=== PATIENT | female | born 1990 | race Two or more races ===

== ENCOUNTER 2018-04-12 10:35 | Emergency (ER) | payer SELFPAY | END 2018-04-12 14:57 | disposition left against medical advice (07) | LOC: ER 10:35 | DX: F41.9 Anxiety disorder, unspecified (principal); Z53.29 Procedure and treatment not carried out because of patient's decision for other reasons ==

== ENCOUNTER → 2022-12-20 | Emergency (ER) | payer MEDICAID, OTHER ==
[~2022-12-20] VITALS: Ht 170.2 cm; Wt 100.0 kg
[~2022-12-20] MED LIST: HALOPERIDOL LACTATE 5 MG/ML INJ VIAL IM ONE; HALOPERIDOL LACTATE 5 MG/ML INJ VIAL ONE; diphenhdrAMINE HCL 50 MG/1 ML VL IM ONE
[2022-12-20 17:20] VITALS: BP 119/76
== END | disposition home or self-care (01) ==
LOC: ER 15:03
DX: F41.9 Anxiety disorder, unspecified (principal)
CPT/HCPCS: 96372; 99284; J1200; J1630

== ENCOUNTER 2023-04-28 13:30 | Emergency (ER) | payer MEDICAID ==
[~2023-04-28] VITALS: Ht 165.1 cm; Wt 93.0 kg
[2023-04-28 14:12] LABS: Basophils # (auto) 0.1 10 ^3/uL (0-0.2); Basophils % (auto) 0.7 % (0.0-2.0); Eosinophils # (auto) 0.1 10 ^3/uL (0-0.8); Eosinophils % (auto) 1.2 % (0.0-7.0); Hematocrit 39.9 % (36.0-46.0); Hemoglobin 13.5 g/dL (12.2-16.2); Lymphocytes # (auto) 2.9 10 ^3/uL (0.4-5.4); Lymphocytes % (auto) 24.6 % (10.0-50.0); Mean Corpuscular Hemoglobin 31.2 pg (28.0-32.0); Mean Corpuscular Hgb Conc. 33.8 g/dL (32.0-36.0); Mean Corpuscular Volume 92.4 fL (80.0-100.0); Monocytes # (auto) 0.6 10 ^3/uL (0-1.3); Monocytes % (auto) 5.3 % (0.0-12.0); Neutrophils # (auto) 7.9 10 ^3/uL (1.6-8.6); Neutrophils % (auto) 68.2 % (37.0-80.0); Nucleated Red Blood Cells % 0.1 %; Red Blood Cells 4.32 10^6/uL (4.0-5.20); Red Cell Distribution Width 12.8 % (11.8-14.3); White Blood Cell 11.6 10^3/uL (4.4-10.8)
[2023-04-28 14:25] LABS: Urine Bacteria MOD /hpf (None Seen); Urine Blood Negative /uL (Negative); Urine Mucus FEW (None Seen); Urine Specific Gravity 1.018 (1.001-1.035); Urine WBC 359 /hpf (0 - 5)
[2023-04-28 14:27] LABS: Albumin 3.1 g/dL (3.4-5.0); BUN/Creatinine Ratio 8.8 (10.0-20.0); Potassium 3.6 mmol/L (3.5-5.1)
[2023-04-28 14:29] LABS: Bilirubin, Total 0.3 mg/dL (0.2-1.0); Total Protein 7.3 g/dL (6.4-8.2)
[2023-04-28] MEDS ORDERED: CEPH-510 PO (16:12)
[2023-04-28 18:15] VITALS: BP 121/80
== END 2023-04-28 18:16 | disposition home or self-care (01) ==
LOC: ER 13:30
DX: O23.41 Unspecified infection of urinary tract in pregnancy, first trimester (principal); N39.0 Urinary tract infection, site not specified; R10.2 Pelvic and perineal pain; Z3A.11 11 weeks gestation of pregnancy
CPT/HCPCS: 36415; 76801; 80053; 81001; 83690; 84702; 85025

== ENCOUNTER 2024-10-24 21:20 | Emergency (ER) | payer MEDICAID ==
[~2024-10-24] VITALS: Ht 170.2 cm; Wt 99.7 kg
[~2024-10-24 21:20] MED LIST changes: +ACE3T PO; +CEPH-510 PO; -HALOPERIDOL LACTATE 5 MG/ML INJ VIAL IM ONE; -HALOPERIDOL LACTATE 5 MG/ML INJ VIAL ONE; +MECL1TAB42 PO; +ZOFR4T PO; -diphenhdrAMINE HCL 50 MG/1 ML VL IM ONE
[2024-10-24 21:46] VITALS: BP 143/92; PULSE 105; RESP 16; O2SAT 98
[2024-10-24 22:41] LABS: Rapid Influenza A Negative (Negative); Rapid Influenza B Negative (Negative)
[2024-10-24 22:42] LABS: COVID19 ANTIGEN SOFIA FIA NEGATIVE (NEGATIVE)
== END 2024-10-25 00:01 | disposition left against medical advice (07) ==
LOC: ER 21:20
DX: J11.1 Influenza due to unidentified influenza virus with other respiratory manifestations (principal); Z53.21 Procedure and treatment not carried out due to patient leaving prior to being seen by health care provider; Z20.822 Contact with and (suspected) exposure to COVID-19
CPT/HCPCS: 36415; 87426; 87804

== ENCOUNTER 2024-12-25 01:35 | Emergency (ER) | payer MEDICAID ==
[2024-12-25] MEDS ORDERED: ASPirin 81 mg TAB PO ONE (01:45)
[2024-12-25] MEDS ORDERED: FAMOTIDINE 20 MG TAB PO ONE (01:45)
[2024-12-25] MEDS ORDERED: LORazepam 0.5 MG TAB PO ONE (01:45)
--- NOTE | 2024-12-25 01:51 | ED.PDOC ---
HPI Comments 34-year-old female who came to ER due to chest pains. About an hour ago, patient started developing substernal chest pains, tight, pressure, constant, nonradiating non radiating, associated with nausea and shortness of breath. Patient appears very anxious at this time of care. She denies any recent use of alcohol or prohibited drugs Chief Complaint: Chest Pain Time Seen by MD: 01:50 Primary Care Provider: UNKNOWN Reviewed Notes: Nurses Notes Allergies: Coded Allergies: NO KNOWN ALLERGIES (Unverified , 04/28/23) Home Meds Active Scripts Meclizine HCl (Meclizine 25) 25 Mg Tab, 25 MG PO Q8HP PRN, #10 TAB Prov:GRACIELA NULL PAC 02/17/24 Ondansetron Odt 4MG Tab (ZOFRAN PO) 4 Mg Tb, 4 MG PO Q6HP PRN, #15 TAB ODT TAB-DISSOLVE IN MOUTH, THEN SWALLOW Prov:GRACIELA NULL PAC 02/17/24 Acetaminophen W/ Codeine (Tylenol W/Cod #3) 1 Tab Tb, 1 TAB PO Q6HP PRN, #15 TAB Prov:GRACIELA NULL PAC 02/17/24 Cephalexin ( Keflex 500) 500 Mg Cap, 1 CAP PO TID for 7 Days, #21 CAP Prov:RAVI MCINTYRE MD 04/28/23 Information Source: Patient Mode of Arrival: Ambulatory Severity: Moderate Timing: Minutes Duration: Since onset Prehospital treatment: None Location: Substernal Radiation: No Radiation Quality: Pressure, Aching Onset: With Light Exertion Cardiac Risk Factors: None PE Risk Factors: None History of: Similar pain in past Associated Signs and Symptoms: SOB, N/V Past Medical History PAST MEDICAL HISTORY: Denies Surgical History: Denies all surgeries RADIO INTERFERENCE INVESTIGATOR History: No Pertinent RADIO INTERFERENCE INVESTIGATOR History Family History Family History: Reviewed,noncontributory to illness Social History Smoker: Non-Smoker Alcohol: Denies ETOH Use Drugs: Denies Drug Use Lives In: Home Constitutional: denies: chills, diaphoresis, fatigue, fever, malaise, sweats, weakness, others EENTM: denies: blurred vision, double vision, ear bleeding, ear discharge, ear drainage, ear pain, ear ringing, eye pain, eye redness, hearing loss, mouth pain, mouth swelling, nasal discharge, nose bleeding, nose congestion, nose pain, photophobia, tearing, throat pain, throat swelling, voice changes, others Respiratory: reports: SOB at rest, shortness of breath; denies: cough, hemoptysis, orthopnea, SOB with excertion, stridor, wheezing, others Cardiovascular: reports: chest pain; denies: dizzy spells, diaphoresis, Dyspnea on exertion, edema, irregular heart beat, left arm pain, lightheadedness, palpitations, PND, syncope, others Gastrointestinal: reports: nausea; denies: abdomen distended, abdominal pain, blood streaked bowels, constipated, diarrhea, dysphagia, difficulty swallowing, hematemesis, melena, poor appetite, poor fluid intake, rectal bleeding, rectal pain, vomiting, others Genitourinary: denies: abnormal vagina bleeding, burning, dyspareunia, dysuria, flank pain, frequency, hematuria, incontinence, pain, , vagina discharge, urgency, others Neurological: denies: dizziness, fainting, headache, left sided numbness, left sided weakness, numbness, paresthesia, pre-existing deficit, right sided numbness, right sided weakness, seizure, speech problems, tingling, tremors, weakness, others Musculoskeletal: denies: back pain, gout, joint pain, joint swelling, muscle pain, muscle stiffness, neck pain, others Integumetry: denies: bruises, change in color, change in hair/nails, dryness, laceration, lesions, lumps, rash, wounds, others Allergic/Immunocompromised: denies: Difficulty Healing, Frequent Infections, Hives, Itching, others Hematologic/Lymphatic: denies: anemia, blood clots, easy bleeding, easy bruising, swollen glands, others Endocrine: denies: excessive hunger, excessive sweating, excessive thirst, excessive urination, flushing, intolerance to cold, intolerance to heat, unexplained weight gain, unexplained weight loss, others Psychiatric: reports: anxiety; denies: bipolar disorder, depression, hopeless, panic disorder, schizophrenia, sleepless, suicidal, others Physical Exam General Appearance: No Apparent Distress, Normal HEENT: Normal ENT Inspection, Pharynx Normal, TMs Normal Neck: Full Range of Motion, Non-Tender, Normal, Normal Inspection Respiratory: Chest Non-Tender, Lungs Clear, No Accessory Muscle Use, No Respiratory Distress, Normal Breath Sounds Cardiovascular: No Edema, No JVD, No Murmur, No Gallop, Normal Peripheral Pulses, Regular Rate/Rhythm Breast Exam: Deferred Gastrointestinal: No Organomegaly, Non Tender, No Pulsatile Mass, Normal Bowel Sounds, Soft Genitalia: Deferred Pelvic: Deferred Rectal: Deferred Extremities: No calf tenderness, Normal capillary refill, Normal inspection, Normal range of motion, Non-tender, No pedal edema Musculoskeletal : Apperance: Normal Neurologic: Alert, corporate trust officer II-XII nml as Tested, No Motor Deficits, Normal Affect, Normal Mood, No Sensory Deficits Cerebellar Function: Normal Reflexes: Normal Skin: Dry, Normal Color, Warm Lymphatic: No Adenopathy Was a procedure done? Was a procedure done?: No CP Differential Dx Differential Diagnosis: Angina, Anxiety / Panic Attack Differential Diagnosis: Angina, Chest Wall Pain, Costochondritis, Esophageal reflux/spasm, Gastritis, Myocardial Infarction Time of 1ST Reevaluation: 01:46 Reevaluation 1ST: Unchanged Patient Education/Counseling: Diagnosis, Treatment Family Education/Counseling: Diagnosis, Treatment Departure 1 Departure Time of Disposition: 02:55 (Patient presented with acute chest pain. I ordered the patient for labs EKG x-ray however patient eloped.) Impression: Primary Impression: Acute chest pain Disposition: 07 LEFT AWOL/ELOPED Condition: Serious Critical Care Note Critical Care Time?: No Stability Stability form required: No Heart Score Heart Score: Heart Score Response (Comments) Value History Slightly Suspicious 0 EKG Normal 0 Age <45 0 Risk Factors No known risk factors 0 Troponin Normal limit 0 Total 0 I personally scribed for DAYANNA MENON MD ([email or web address]) on 12/25/24 at 01:51. Electronically submitted by Cameron Chamorro ([email or web address]). DAYANNA MENON MD Dec 25, 2024 01:51
--- NOTE | 2024-12-25 04:10 | DVH ---
CHEST RADIOGRAPH Indication: CP Technique: Single frontal view of the chest was obtained Comparison: None IMPRESSION: Heart appears normal in size. The lungs appear clear without focal airspace opacity, effusion, or pn eumothorax
--- NOTE | 2024-12-25 09:48 | ECG ---
[facility] Test Date: 2024-12-25 Test Time: 09:45:54 Pat Name: BRIGETTE WIGGINS Department: ER Room: Gender: F Bonding Agent: CRYSTAL : 1990 Requested By: DAYANNA MENON Order Number: [id number] Reading MD: Measurements Intervals [place] Rate: 113 P: 53 [place]: 157 QRS: -24 QRSD: 79 T: 6 QT: 354 QTc: 486 Interpretive Statements Sinus tachycardia Borderline left axis deviation Borderline prolonged QT interval Please click the below link to view image of tracing.
[2024-12-25] MEDS ORDERED: CYCL-838 PO (11:34)
[2024-12-25] MEDS ORDERED: POTA-228 PO (11:34)
== END 2024-12-25 02:46 | disposition left against medical advice (07) ==
LOC: ER 01:35
DX: R07.89 Other chest pain (principal); Z79.899 Other long term (current) drug therapy
CPT/HCPCS: 71045; 93005

== ENCOUNTER 2024-12-25 09:42 | Emergency (ER) | payer MEDICAID ==
[~2024-12-25] VITALS: Ht 170.2 cm; Wt 95.0 kg
--- NOTE | 2024-12-25 10:16 | ED.PDOC ---
HPI Comments 34-year-old female with no reported PMHx brought in by EMS presents with a chief complaint of chest pain x 3 hours with associated anxiety. Patient reports that she got a sudden onset of chest pressure in the center of her chest, nonradiating, and is rated a 9/10. Patient is currently anxious during assessment. Chief Complaint: Chest Pain Time Seen by MD: 10:09 Primary Care Provider: EMMETT Mosquera Notes: Medications, Allergies Allergies: Coded Allergies: NO KNOWN ALLERGIES (Unverified , 04/28/23) Home Meds Active Scripts Cyclobenzaprine Hcl (CYCLOBENZAPRINE HCL) 7.5 Mg Tab, 7.5 MG PO Q6HP PRN for 7 Days, #28 TAB Prov:MILIND ARGUETA MD 12/25/24 Potassium Chloride (Potassium Chloride ER) 10 Meq Tab, 10 MEQ PO BID for 10 Days, #20 TAB Prov:MILIND ARGUETA MD 12/25/24 Meclizine HCl (Meclizine 25) 25 Mg Tab, 25 MG PO Q8HP PRN, #10 TAB Prov:GRACIELA NULL PAC 02/17/24 Ondansetron Odt 4MG Tab (ZOFRAN PO) 4 Mg Tb, 4 MG PO Q6HP PRN, #15 TAB ODT TAB-DISSOLVE IN MOUTH, THEN SWALLOW Prov:GRACIELA NULL PAC 02/17/24 Acetaminophen W/ Codeine (Tylenol W/Cod #3) 1 Tab Tb, 1 TAB PO Q6HP PRN, #15 TAB Prov:GRACIELA NULL PAC 02/17/24 Cephalexin ( Keflex 500) 500 Mg Cap, 1 CAP PO TID for 7 Days, #21 CAP Prov:RAVI MCINTYRE MD 04/28/23 Information Source: Patient Mode of Arrival: EMS Severity: Moderate Timing: Hours Duration: Since onset Prehospital treatment: None Location: Substernal Radiation: No Radiation Quality: Sharp Onset: At Rest Cardiac Risk Factors: None PE Risk Factors: None History of: None Past Medical History PAST MEDICAL HISTORY: Denies Surgical History: Denies all surgeries SHIPPING CLERK CRATING History: No Pertinent SHIPPING CLERK CRATING History Family History Family History: Reviewed,noncontributory to illness Social History Smoker: Non-Smoker Alcohol: Denies ETOH Use Drugs: Denies Drug Use Lives In: Home Constitutional: denies: chills, diaphoresis, fatigue, fever, malaise, sweats, weakness, others EENTM: denies: blurred vision, double vision, ear bleeding, ear discharge, ear drainage, ear pain, ear ringing, eye pain, eye redness, hearing loss, mouth pain, mouth swelling, nasal discharge, nose bleeding, nose congestion, nose pain, photophobia, tearing, throat pain, throat swelling, voice changes, others Respiratory: denies: cough, hemoptysis, orthopnea, SOB at rest, shortness of breath, SOB with excertion, stridor, wheezing, others Cardiovascular: reports: chest pain; denies: dizzy spells, diaphoresis, Dyspnea on exertion, edema, irregular heart beat, left arm pain, lightheadedness, palpitations, PND, syncope, others Gastrointestinal: denies: abdomen distended, abdominal pain, blood streaked bowels, constipated, diarrhea, dysphagia, difficulty swallowing, hematemesis, melena, nausea, poor appetite, poor fluid intake, rectal bleeding, rectal pain, vomiting, others Genitourinary: denies: abnormal vagina bleeding, burning, dyspareunia, dysuria, flank pain, frequency, hematuria, incontinence, pain, , vagina discharge, urgency, others Neurological: denies: dizziness, fainting, headache, left sided numbness, left sided weakness, numbness, paresthesia, pre-existing deficit, right sided numbness, right sided weakness, seizure, speech problems, tingling, tremors, weakness, others Musculoskeletal: denies: back pain, gout, joint pain, joint swelling, muscle pain, muscle stiffness, neck pain, others Integumetry: denies: bruises, change in color, change in hair/nails, dryness, laceration, lesions, lumps, rash, wounds, others Allergic/Immunocompromised: denies: Difficulty Healing, Frequent Infections, Hives, Itching, others Hematologic/Lymphatic: denies: anemia, blood clots, easy bleeding, easy bruising, swollen glands, others Endocrine: denies: excessive hunger, excessive sweating, excessive thirst, excessive urination, flushing, intolerance to cold, intolerance to heat, unexplained weight gain, unexplained weight loss, others Psychiatric: reports: anxiety; denies: bipolar disorder, depression, hopeless, panic disorder, schizophrenia, sleepless, suicidal, others All Other Systems: Reviewed and Negative Physical Exam General Appearance: Mild Distress, Normal HEENT: Normal ENT Inspection, Pharynx Normal, TMs Normal Neck: Full Range of Motion, Non-Tender, Normal, Normal Inspection Respiratory: Chest Non-Tender, Lungs Clear, No Accessory Muscle Use, No Respiratory Distress, Normal Breath Sounds Cardiovascular: No Edema, No JVD, No Murmur, No Gallop, Normal Peripheral Pulses, Regular Rate/Rhythm Breast Exam: Deferred Gastrointestinal: No Organomegaly, Non Tender, No Pulsatile Mass, Normal Bowel Sounds, Soft Genitalia: Deferred Pelvic: Deferred Rectal: Deferred Extremities: No calf tenderness, Normal capillary refill, Normal inspection, Normal range of motion, Non-tender, No pedal edema Musculoskeletal : Apperance: Normal Neurologic: Alert, video intern II-XII nml as Tested, No Motor Deficits, Normal Affect, Normal Mood, No Sensory Deficits Cerebellar Function: Normal Reflexes: Normal Skin: Dry, Normal Color, Warm Lymphatic: No Adenopathy Was a procedure done? Was a procedure done?: No CP Differential Dx Differential Diagnosis: A-fib, Angina, Heart Failure, Hypoxia, Pulmonary Embolus, Sinus Tachycardia, V-Fib, V-Tach, Other Differential Diagnosis: CHF X-Ray, Labs, Meds, VS Vital Signs Date Time Temp Pulse Resp B/P (MAP) Pulse Ox O2 Delivery O2 Flow Rate FiO2 12/25/24 11:46 98.0 98 20 121/75 (90) 97 98.0 12/25/24 11:45 98 20 97 Room Air* 0 21 12/25/24 10:34 97.5 112 26 142/92 (109) 100 97.5 12/25/24 10:34 112 26 100 Room Air 0 12/25/24 09:47 97.5 112 26 142/92 (109) 100 12/25/24 09:45 113 Lab Test 12/25/24 10:58 12/25/24 09:50 Range/Units Troponin I High Sensitivity 3 L 4 </=34 ng/L White Blood Count 12.0 H 4.4-10.8 10^3/uL Red Blood Count 4.93 4.0-5.20 10^6/uL Hemoglobin 14.8 12.2-16.2 g/dL Hematocrit 44.2 36.0-46.0 % Mean Corpuscular Volume 89.7 80.0-100.0 fL Mean Corpuscular Hemoglobin 30.1 28.0-32.0 pg Mean Corpuscular Hemoglobin Concent 33.6 32.0-36.0 g/dL Red Cell Distribution Width 14.0 11.8-14.3 % Platelet Count 345 140-450 10^3/uL Mean Platelet Volume 8.7 6.9-10.8 fL Neutrophils (%) (Auto) 63.8 37.0-80.0 % Lymphocytes (%) (Auto) 27.1 10.0-50.0 % Monocytes (%) (Auto) 7.8 0.0-12.0 % Eosinophils (%) (Auto) 0.6 0.0-7.0 % Basophils (%) (Auto) 0.7 0.0-2.0 % Neutrophils # (Auto) 7.6 1.6-8.6 10 ^3/uL Lymphocytes # (Auto) 3.2 0.4-5.4 10 ^3/uL Monocytes # (Auto) 0.9 0-1.3 10 ^3/uL Eosinophils # (Auto) 0.1 0-0.8 10 ^3/uL Basophils # (Auto) 0.1 0-0.2 10 ^3/uL Nucleated Red Blood Cells 0.0 % Sodium Level 139 136-145 mmol/L Potassium Level 2.9 L 3.5-5.1 mmol/L Chloride Level 106 98-107 mmol/L Carbon Dioxide Level 17 L 20-31 mmol/L Anion Gap 16 H 5-15 Blood Urea Nitrogen 8 L 9-23 mg/dL Creatinine 0.91 0.550-1.02 mg/dL Glomerular Filtration Rate Calc 85 >90 mL/min BUN/Creatinine Ratio 8.8 L 10.0-20.0 Serum Glucose 113 H 74-106 mg/dL Calcium Level 10.2 8.7-10.4 mg/dL Total Bilirubin 0.4 0.2-1.0 mg/dL Aspartate Amino Transferase (AST) 27 13-40 U/L Alanine Aminotransferase (ALT) 34 7-40 U/L Alkaline Phosphatase 91 46-116 U/L Total Protein 7.2 5.7-8.2 g/dL Albumin 4.8 3.2-4.8 g/dL Current Medications Medications (Trade) Dose Ordered Sig/Zuleyka Route Start Time Stop Time Status Last Admin Lorazepam (Ativan Inj) 2 mg ONCE ONCE IM 12/25/24 10:15 12/25/24 10:16 DC 12/25/24 10:29 Time of 1ST Reevaluation: 10:39 Reevaluation 1ST: Unchanged Time of 2ND Reevaluation: 12:00 Reevaluation 2ND: Improved Patient Education/Counseling: Diagnosis, Treatment, Prognosis Family Education/Counseling: Diagnosis, Treatment, Prognosis Departure 1 Departure Time of Disposition: 12:00 Impression: Primary Impression: Atypical chest pain Disposition: 01 HOME / SELF CARE / HOMELESS Condition: Stable e-Prescriptions Cyclobenzaprine Hcl (CYCLOBENZAPRINE HCL) 7.5 Mg Tab 7.5 MG PO Q6HP PRN for 7 Days, #28 TAB Prov: MILIND ARGUETA MD 12/25/24 Potassium Chloride (Potassium Chloride ER) 10 Meq Tab 10 MEQ PO BID for 10 Days, #20 TAB Prov: MILIND ARGUETA MD 12/25/24 Discharged With: Self Critical Care Note Critical Care Time?: No Stability Stability form required: No Heart Score Heart Score: Heart Score Response (Comments) Value History Slightly Suspicious 0 EKG Normal 0 Age <45 0 Risk Factors No known risk factors 0 Troponin Normal limit 0 Total 0 I personally scribed for MILIND ARGUETA MD ([email or web address]) on 12/25/24 at 10:16. Electronically submitted by Santo Sharp ([email or web address]). MILIND ARGUETA MD Dec 25, 2024 10:16
[2024-12-25 10:17] LABS: Basophils # (auto) 0.1 10 ^3/uL (0-0.2); Basophils % (auto) 0.7 % (0.0-2.0); Eosinophils # (auto) 0.1 10 ^3/uL (0-0.8); Eosinophils % (auto) 0.6 % (0.0-7.0); Hematocrit 44.2 % (36.0-46.0); Hemoglobin 14.8 g/dL (12.2-16.2); Lymphocytes # (auto) 3.2 10 ^3/uL (0.4-5.4); Lymphocytes % (auto) 27.1 % (10.0-50.0); Mean Corpuscular Hemoglobin 30.1 pg (28.0-32.0); Mean Corpuscular Hgb Conc. 33.6 g/dL (32.0-36.0); Mean Corpuscular Volume 89.7 fL (80.0-100.0); Monocytes # (auto) 0.9 10 ^3/uL (0-1.3); Monocytes % (auto) 7.8 % (0.0-12.0); Neutrophils # (auto) 7.6 10 ^3/uL (1.6-8.6); Neutrophils % (auto) 63.8 % (37.0-80.0); Platelet Count (auto) 345 10^3/uL (140-450); Red Blood Cells 4.93 10^6/uL (4.0-5.20)
[2024-12-25] MEDS: LORazepam 2MG/ML-1ML VIAL IM ONE (10:29)
[2024-12-25 10:32] LABS: Alanine Aminotransferase 34 U/L (7-40); Alkaline Phosphatase 91 U/L (46-116); Anion Gap 16 (5-15); BUN/Creatinine Ratio 8.8 (10.0-20.0); Calcium 10.2 mg/dL (8.7-10.4); Chloride 106 mmol/L (98-107); Sodium 139 mmol/L (136-145)
[2024-12-25 10:33] LABS: Albumin 4.8 g/dL (3.2-4.8); Aspartate Aminotransferase 27 U/L (13-40)
[2024-12-25 10:34] LABS: Bilirubin, Total 0.4 mg/dL (0.2-1.0); Blood Urea Nitrogen 8 mg/dL (9-23); Carbon Dioxide 17 mmol/L (20-31); Glucose 113 mg/dL (74-106); Potassium 2.9 mmol/L (3.5-5.1); Total Protein 7.2 g/dL (5.7-8.2)
--- NOTE | 2024-12-25 10:58 | DVH ---
CHEST RADIOGRAPH Indication: chest pain Technique: Single frontal view of the chest was obtained COMPARISON: XY CHEST PORTABLE on DOS: 12/25/24 FINDINGS: Lines and Tubes: None Lungs: Increased interstitial prominence Pleura: No effusion. No pneumothorax. Cardiomediastinal contours: Unremarkable Bones: Unremarkable IMPRESSION: Possible viral pneumonia
[2024-12-25] MEDS ORDERED: CYCL-838 PO (11:34)
[2024-12-25] MEDS ORDERED: POTA-228 PO (11:34)
[2024-12-25 11:45] VITALS: PULSE 98; RESP 20; O2SAT 97
[2024-12-25 11:46] VITALS: BP 121/75; PULSE 98; RESP 20; TEMP 98; O2SAT 97
== END 2024-12-25 11:52 | disposition home or self-care (01) ==
LOC: EDBD 09:42 → ER 09:42
DX: R07.89 Other chest pain (principal); F41.9 Anxiety disorder, unspecified
CPT/HCPCS: 36415; 71045; 80053; 84484; 85025; 96372; 99284; J2060

== ENCOUNTER 2025-01-03 19:29 | Emergency (ER) | payer MEDICAID ==
[~2025-01-03] VITALS: Ht 175.3 cm; Wt 96.1 kg
[~2025-01-03 19:29] MED LIST changes: +CYCL-838 PO; +POTA-228 PO
[2025-01-03 19:59] VITALS: BP 147/104; PULSE 98; RESP 16; O2SAT 99
--- NOTE | 2025-01-03 20:20 | ED.PDOC ---
History of Present Illness HPI Comments 34 y/o F presents with c/o right-breast pain, today. Patient is a poor historian and endorses on coming for pain that has had no relief with [id number] pain medications. She denies any recent injuries, relevant medical history, or other additional pertinent information. Patient denies having any chest pain, shortness of breath, fever, chills, rash, or other associated symptoms or modifiers at this time. Chief Complaint: Breast pain Time Seen by MD: 19:50 Primary Care Provider: EMMETT Reviewed Notes: Nurses Notes, Medications, Allergies Allergies: Coded Allergies: NO KNOWN ALLERGIES (Unverified , 04/28/23) Home Meds Active Scripts Cyclobenzaprine Hcl (CYCLOBENZAPRINE HCL) 7.5 Mg Tab, 7.5 MG PO Q6HP PRN for 7 Days, #28 TAB Prov:MILIND ARGUETA MD 12/25/24 Potassium Chloride (Potassium Chloride ER) 10 Meq Tab, 10 MEQ PO BID for 10 Days, #20 TAB Prov:MILIND ARGUETA MD 12/25/24 Meclizine HCl (Meclizine 25) 25 Mg Tab, 25 MG PO Q8HP PRN, #10 TAB Prov:GRACIELA NULL PAC 02/17/24 Ondansetron Odt 4MG Tab (ZOFRAN PO) 4 Mg Tb, 4 MG PO Q6HP PRN, #15 TAB ODT TAB-DISSOLVE IN MOUTH, THEN SWALLOW Prov:GRACIELA NULL PAC 02/17/24 Acetaminophen W/ Codeine (Tylenol W/Cod #3) 1 Tab Tb, 1 TAB PO Q6HP PRN, #15 TAB Prov:GRACIELA NULL PAC 02/17/24 Cephalexin ( Keflex 500) 500 Mg Cap, 1 CAP PO TID for 7 Days, #21 CAP Prov:RAVI MCINTYRE MD 04/28/23 Information Source: Patient Mode of Arrival: Ambulatory Severity: Moderate Timing: Hours Duration: Since onset Prehospital treatment: None Past Medical History PAST MEDICAL HISTORY: Denies Surgical History: Denies all surgeries SUPERVISOR TYPESETTING History: No Pertinent SUPERVISOR TYPESETTING History Family History Family History: Reviewed,noncontributory to illness Social History Smoker: Non-Smoker Alcohol: Denies ETOH Use Drugs: Denies Drug Use Lives In: Home Musculoskeletal: reports: others (right breast pain ) All Other Systems: Reviewed and Negative (negative unless otherwise stated above or in HPI) Physical Exam General Appearance: No Apparent Distress, Normal HEENT: Normal ENT Inspection, Pharynx Normal, TMs Normal Neck: Full Range of Motion, Non-Tender, Normal, Normal Inspection Respiratory: Chest Non-Tender, Lungs Clear, No Accessory Muscle Use, No Respiratory Distress, Normal Breath Sounds Cardiovascular: No Edema, No JVD, No Murmur, No Gallop, Normal Peripheral Pulses, Regular Rate/Rhythm Breast Exam: Deferred Gastrointestinal: No Organomegaly, Non Tender, No Pulsatile Mass, Normal Bowel Sounds, Soft Genitalia: Deferred Pelvic: Deferred Rectal: Deferred Extremities: No calf tenderness, Normal capillary refill, Normal inspection, Normal range of motion, Non-tender, No pedal edema Musculoskeletal : Location: Right Extremity Location: Chest (chest wall ) Apperance: Normal, Tenderness Neurologic: Alert, collections specialist II-XII nml as Tested, No Motor Deficits, Normal Affect, Normal Mood, No Sensory Deficits Cerebellar Function: Normal Reflexes: Normal Skin: Dry, Normal Color, Warm Lymphatic: No Adenopathy Was a procedure done? Was a procedure done?: No Differential Dx Considerations may include: musculoskeletal pain, costochondritis, viral syndrome, dehydration X-Ray, Labs, Meds, VS Vital Signs Date Time Temp Pulse Resp B/P (MAP) Pulse Ox O2 Delivery O2 Flow Rate FiO2 01/03/25 19:59 97.9 98 16 147/104 (118) 99 The patient did meet the criteria for ultrasound examination of the breasts. She denied a mass lesion from the nipple or nipple inversion. She was prescribed Motrin. Time of 1ST Reevaluation: 21:09 Reevaluation 1ST: Unchanged Patient Education/Counseling: Diagnosis, Treatment Family Education/Counseling: No Family Present Departure 1 Departure Time of Disposition: 21:08 Impression: Primary Impression: Breast pain Disposition: 01 HOME / SELF CARE / HOMELESS Condition: Stable Additional Instructions: Reassessed patient, vital signs stable. Denies any new symptoms. Patient is able to tolerate PO and ambulate/be mobile at their baseline without concern. Risks and benefits of all medications given or prescribed, if any, discussed. All lab work, imaging and diagnostic studies were reviewed by me. The patient was cou nseled extensively on my clinical impression, diagnosis, expected course of the disease, and plan, including their follow-up care. Will discharge patient. Patient instructed to follow up with Primary Care Physician within 24-48 hours. Strict return precautions given for further exacerbation of symptoms or for new symptoms. The patient was given the opportunity to ask questions and all questions were answered by myself and the nursing/tech staff. Patient is in agreement with the care plan. The patient verbally expressed understanding of the discharge instructions, including the reasons to return to the Emergency Department. e-Prescriptions Ibuprofen (Advil) 200 Mg Cap 800 MG PO TIDWMEALS, #30 CAP Prov: MARIA BULL MD 01/03/25 Discharged With: Self Critical Care Note Critical Care Time?: No Stability Stability form required: No Heart Score Heart Score: Heart Score Response (Comments) Value History N/A 0 EKG N/A 0 Age N/A 0 Risk Factors N/A 0 Troponin N/A 0 Total 0 I personally scribed for MARIA BULL MD ([email or web address]) on 01/03/25 at 20:20. Electronically submitted by bAiel South ([email or web address]). MARIA BULL MD Jan 03, 2025 20:20
[2025-01-03] MEDS ORDERED: IBUP200C14 PO (21:09)
== END 2025-01-04 01:31 | disposition home or self-care (01) ==
LOC: ER 19:29
DX: N64.4 Mastodynia (principal)

== ENCOUNTER 2025-03-18 17:21 | Emergency (ER) | payer MEDICAID ==
[~2025-03-18] VITALS: Ht 175.3 cm; Wt 100.0 kg
[~2025-03-18 17:21] MED LIST changes: +IBUP200C14 PO
--- NOTE | 2025-03-18 17:56 | ED.PDOC ---
HPI Comments 34 y/o F, with no prior medical history, presents to the ED for CC of chest pain. Patient states, that she has been experiencing pressure like right sided chest pain x30 minutes. Patient relays recent stressors, of being kicked out of home due to not paying rent. Patient denies any other cardiac complaints and is verbally rambling about having father on her right shoulder. Patient is visibly unkept and disheveled; denies any prior psychiatric history. No other symptoms or modifying factors present at this time. Chief Complaint: Chest Pain Time Seen by MD: 17:55 Primary Care Provider: DENIES Reviewed Notes: Nurses Notes, Medications, Allergies Allergies: Coded Allergies: Acetaminophen (Verified Allergy, Unknown, 03/18/25) Home Meds Active Scripts Ibuprofen (Advil) 200 Mg Cap, 800 MG PO TIDWMEALS, #30 CAP Prov:MARIA BULL MD 01/03/25 Cyclobenzaprine Hcl (CYCLOBENZAPRINE HCL) 7.5 Mg Tab, 7.5 MG PO Q6HP PRN for 7 Days, #28 TAB Prov:MILIND ARGUETA MD 12/25/24 Potassium Chloride (Potassium Chloride ER) 10 Meq Tab, 10 MEQ PO BID for 10 Days, #20 TAB Prov:MILIND ARGUETA MD 12/25/24 Meclizine HCl (Meclizine 25) 25 Mg Tab, 25 MG PO Q8HP PRN, #10 TAB Prov:GRACIELA NULL PAC 02/17/24 Ondansetron Odt 4MG Tab (ZOFRAN PO) 4 Mg Tb, 4 MG PO Q6HP PRN, #15 TAB ODT TAB-DISSOLVE IN MOUTH, THEN SWALLOW Prov:GRACIELA NULL PAC 02/17/24 Acetaminophen W/ Codeine (Tylenol W/Cod #3) 1 Tab Tb, 1 TAB PO Q6HP PRN, #15 TAB Prov:GRACIELA NULL PAC 02/17/24 Cephalexin ( Keflex 500) 500 Mg Cap, 1 CAP PO TID for 7 Days, #21 CAP Prov:RAVI MCINTYRE MD 04/28/23 Information Source: Patient Mode of Arrival: Wheelchair Severity: Moderate Timing: Minutes Duration: Since onset Prehospital treatment: None Location: Substernal Radiation: No Radiation Quality: Pressure Onset: At Rest Cardiac Risk Factors: None PE Risk Factors: None History of: None Modifying Factors: Nothing Associated Signs and Symptoms: None Past Medical History PAST MEDICAL HISTORY: Denies Surgical History: Denies all surgeries GASTROENTEROLOGY TEACHER History: No Pertinent GASTROENTEROLOGY TEACHER History Family History Family History: Reviewed,noncontributory to illness Social History Smoker: Non-Smoker Alcohol: Denies ETOH Use Drugs: Denies Drug Use Lives In: Home Constitutional: denies: chills, diaphoresis, fatigue, fever, malaise, sweats, weakness, others EENTM: denies: blurred vision, double vision, ear bleeding, ear discharge, ear drainage, ear pain, ear ringing, eye pain, eye redness, hearing loss, mouth p ain, mouth swelling, nasal discharge, nose bleeding, nose congestion, nose pain, photophobia, tearing, throat pain, throat swelling, voice changes, others Respiratory: denies: cough, hemoptysis, orthopnea, SOB at rest, shortness of br eath, SOB with excertion, stridor, wheezing, others Cardiovascular: reports: chest pain; denies: dizzy spells, diaphoresis, Dyspnea on exertion, edema, irregular heart beat, left arm pain, lightheadedness, palpitations, PND, syncope, others Gastrointestinal: denies: abdomen distended, abdominal pain, blood streaked lena wels, constipated, diarrhea, dysphagia, difficulty swallowing, hematemesis, melena, nausea, poor appetite, poor fluid intake, rectal bleeding, rectal pain, vomiting, others Genitourinary: denies: abnormal vagina bleeding, burning, dyspareunia, dysuria, flank pain, frequency, hematuria, incontinence, pain, , vagina discharge, urgency, others Neurological: denies: dizziness, fainting, headache, left sided numbness, left sided weakness, numbness, paresthesia, pre-existing deficit, right sided numbness, right sided weakness, seizure, speech problems, tingling, tremors, weakness, others Musculoskeletal: denies: back pain, gout, joint pain, joint swelling, muscle pain, muscle stiffness, neck pain, others Integumetry: denies: bruises, change in color, change in hair/nails, dryness, laceration, lesions, lumps, rash, wounds, others Allergic/Immunocompromised: denies: Difficulty Healing, Frequent Infections, Hives, Itching, others Hematologic/Lymphatic: denies: anemia, blood clots, easy bleeding, easy bruis ing, swollen glands, others Endocrine: denies: excessive hunger, excessive sweating, excessive thirst, exc essive urination, flushing, intolerance to cold, intolerance to heat, unexplained weight gain, unexplained weight loss, others Psychiatric: reports: anxiety; denies: bipolar disorder, depression, hopeless, panic disorder, schizophrenia, sleepless, suicidal, others All Other Systems: Reviewed and Negative Physical Exam General Appearance: No Apparent Distress, Normal HEENT: Normal ENT Inspection, Pharynx Normal, TMs Normal Neck: Full Range of Motion, Non-Tender, Normal, Normal Inspection Respiratory: Chest Non-Tender, Lungs Clear, No Accessory Muscle Use, No Respiratory Distress, Normal Breath Sounds Cardiovascular: No Edema, No JVD, No Murmur, No Gallop, Normal Peripheral Pulses, Regular Rate/Rhythm Breast Exam: Deferred Gastrointestinal: No Organomegaly, Non Tender, No Pulsatile Mass, Normal Bowel Sounds, Soft Genitalia: Deferred Pelvic: Deferred Rectal: Deferred Extremities: No calf tenderness, Normal capillary refill, Normal inspection, Normal range of motion, Non-tender, No pedal edema Musculoskeletal : Location: Right Extremity Location: Chest Apperance: Tenderness (UPON PALPATION ) Neurologic: Alert, No Motor Deficits, Normal Affect, No Sensory Deficits, Other (HIGHLY ANXIOUS) Cerebellar Function: Normal Reflexes: Normal Skin: Dry, Normal Color, Warm Lymphatic: No Adenopathy Was a procedure done? Was a procedure done?: No CP Differential Dx Differential Diagnosis: Anxiety / Panic Attack, Heart Failure, [place] Differential Diagnosis: CHF Differential Diagnosis: Angina, Chest Wall Pain, Costochondritis, Myocardial Infarction, Pericarditis, Pneumonia X-Ray, Labs, Meds, VS Vital Signs Date Time Temp Pulse Resp B/P (MAP) Pulse Ox O2 Delivery O2 Flow Rate FiO2 03/18/25 19:04 100 20 145/106 (119) 96 03/18/25 18:29 97 03/18/25 17:33 16 98 Room Air* 0 21 03/18/25 17:27 108 03/18/25 17:22 98.9 105 16 133/95 (108) 98 98.9 Lab Test 03/18/25 17:30 Range/Units Troponin I High Sensitivity < 3 L </=34 ng/L Time of 1ST Reevaluation: 18:25 Reevaluation 1ST: Improved Patient Education/Counseling: Diagnosis, Treatment, Prognosis, Need For Follow Up Family Education/Counseling: No Family Present Comments The following charts were reviewed from patient prior visits: 01/03/25 DX:BREAST PAIN, 12/25/24 DX:HYPERKALEMIA, 12/25/24 CHEST PAIN, 10/24/24 DX: DIARRHEA, 02/16/24 DX:HEADACHE The following tests were ordered, and results were reviewed by me: EKG, TROPONIN cxr I reviewed and agreed with the following test results read by other providers: cxr I discussed treatment and results with medical personnel and: Patient Comprehensive systems review obtained and negative except for what is stated in the HPI. pt has asthma, is out of her inhalers, and has been coughing. cxr shows infiltrate. i will start her on antibiotic, refill her inhalers Departure 1 Departure Time of Disposition: 19:36 Impression: Primary Impression: Pneumonia Qualified Codes: J18.9 - Pneumonia, unspecified organism Additional Impressions: Asthma attack Qualified Codes: J45.21 - Mild intermittent asthma with (acute) exacerbation Medication refill Disposition: HOME / SELF CARE / HOMELESS Condition: Stable e-Prescriptions Azithromycin (Zithromax Z-Kings) 250 Mg Tab 250 MG PO DAILY for 5 Days, #1 EA Prov: SHARA SERRANO MD 03/18/25 Ipratropium-Albuterol (COMBIVENT RESPIMAT) Respimat Aer 2 PUFF IN Q4HP PRN, #1 AER Prov: SHARA SERRANO MD 03/18/25 Discharged With: Self Critical Care Note Critical Care Time?: No Stability Stability form required: No Heart Score Heart Score: Heart Score Response (Comments) Value History N/A 0 EKG N/A 0 Age N/A 0 Risk Factors N/A 0 Troponin N/A 0 Total 0 I personally scribed for SHARA SERRANO MD ([email or web address]) on 03/18/25 at 17:56. Electronically submitted by Mai Vaughn ([email or web address]). I personally scribed for SHARA SERRANO MD ([email or web address]) on 03/18/25 at 18:17. Electronically submitted by Mai Vaughn ([email or web address]). I personally scribed for SHARA SERRANO MD ([email or web address]) on 03/18/25 at 18:18. Electronically submitted by Mai Vaughn ([email or web address]). I personally scribed for SHARA SERRANO MD ([email or web address]) on 03/18/25 at 18:28. Electronically submitted by Mai Vaughn ([email or web address]). SHARA SERRANO MD Mar 18, 2025 17:56
--- NOTE | 2025-03-18 18:30 | ECG ---
[facility] Test Date: 2025-03-18 Test Time: 18:29:43 Pat Name: BRIGETTE WIGGINS Department: ED Room: Gender: F Improvement Spec: YARED : 1990 Requested By: RAVI MCINTYRE Order Number: [id number] Reading MD: Measurements Intervals [place] Rate: 97 P: 29 NE: 140 QRS: -35 QRSD: 83 T: 1 QT: 351 QTc: 446 Interpretive Statements Sinus rhythm Inferior infarct, old Consider anterior infarct Please click the below link to view image of tracing.
--- NOTE | 2025-03-18 19:23 | DVH ---
CHEST RADIOGRAPH Indication: cp Technique: Single frontal view of the chest was obtained COMPARISON: XY CHEST XRAY 1 VIEW on DOS: 12/25/24, XY CHEST PORTABLE on DOS: 12/25/24 FINDINGS: Lines and Tubes: None Lungs: Right lower lobe opacity may reflect atelectasis or mild pneumonia. Pleura: No effusion. No pneumothorax. Cardiomediastinal contours: Unremarkable Bones: Unremarkable IMPRESSION: 1. Right lower lobe opacity may reflect atelectasis or mild pneumonia
[2025-03-18] MEDS ORDERED: AZITTAB PO (19:39)
[2025-03-18] MEDS ORDERED: IPRAAER6 IN (19:39)
[2025-03-18] MEDS ORDERED: IBU600T PO (19:42)
[2025-03-18] MEDS: LIDOCAINE 1% HCL (LOCAL ANESTH.) INJ 20ML MDV IJ ONE (20:19)
[2025-03-18] MEDS: cefTRIAXone SOD 1,000 MG VL IM ONE (20:19)
[2025-03-18] MEDS: KETOROLAC TROMETH 30 MG/ML 1ML VIAL IM ONE (20:20)
[2025-03-18] MEDS: diphenhdrAMINE HCL 50 MG/1 ML VL IM ONE (20:36)
[2025-03-18] MEDS: HALOPERIDOL LACTATE 5 MG/ML INJ VIAL IM ONE (20:37)
[2025-03-18 20:50] VITALS: BP 133/94; PULSE 99; RESP 17; TEMP 97.7; O2SAT 98
--- NOTE | 2025-03-20 09:28 | ECG ---
[facility] Test Date: 2025-03-18 Test Time: 17:27:00 Pat Name: BRIGETTE WIGGINS Department: ER Room: Gender: F Vascular Tech: FREIDA : 1990 Requested By: RAVI MCINTYRE Order Number: [id number] Reading MD: Measurements Intervals [place] Rate: 108 P: 19 [place]: 144 QRS: -25 QRSD: 83 T: 16 QT: 337 QTc: 452 Interpretive Statements Sinus tachycardia Borderline left axis deviation Low voltage, precordial leads Consider anterior infarct Please click the below link to view image of tracing.
== END 2025-03-18 20:52 | disposition home or self-care (01) ==
LOC: ER 17:21
DX: J18.9 Pneumonia, unspecified organism (principal); J45.909 Unspecified asthma, uncomplicated; Z76.0 Encounter for issue of repeat prescription; Z79.899 Other long term (current) drug therapy; Z88.1 Allergy status to other antibiotic agents
CPT/HCPCS: 36415; 71045; 84484; 93005; 96372; 99285; J0696; J1885; J2003

== ENCOUNTER 2025-03-25 20:38 | Emergency (ER) | payer MEDICAID ==
[~2025-03-25] VITALS: Ht 160 cm; Wt 93.6 kg
[~2025-03-25 20:38] MED LIST changes: +IBU600T PO
--- NOTE | 2025-03-25 22:54 | ED.PDOC ---
History of Present Illness(SKN HPI Comments PT PRESENTED TO ED FOR RIGHT ARMPIT CYST X2 DAYS. REDNESS/SWELLING NOTED. NO DRAINAGE PRESENT. DENIES FEVER, CHILLS, NAUSEA OR VOMITING Chief Complaint: Abscess Time Seen by MD: 21:13 Primary Care Provider: DENIES History of Present Illness: Nurses Notes, Medications, Allergies Allergies: Coded Allergies: Acetaminophen (Verified Allergy, Unknown, 03/18/25) Home Meds Active Scripts Ibuprofen (Ibuprofen) 800 Mg Tab, 800 MG PO Q8HP PRN for 4 Days, #12 TAB Prov:RICHARD WADDELL 03/25/25 Clindamycin Hcl (Clindamycin Hcl) 300 Mg Cap, 1 CAP PO TID for 7 Days, #21 CAP Prov:RICHARD WADDELL 03/25/25 Ibuprofen Micronized (MOTRIN TABLET) 600 Mg Tb, 600 MG PO TID PRN, #40 TAB *Black box warning-NSAIDS can increase risk of [place] & hypertension, GI irritation, ulceration, bleed, perferation. Do not use post cardiac surgery. Use short duration/lowest effective dose. Prov:SHARA SERRANO MD 03/18/25 Ibuprofen (Advil) 200 Mg Cap, 800 MG PO TIDWMEALS, #30 CAP Prov:MARIA BULL MD 01/03/25 Cyclobenzaprine Hcl (CYCLOBENZAPRINE HCL) 7.5 Mg Tab, 7.5 MG PO Q6HP PRN for 7 Days, #28 TAB Prov:MILIND ARGUETA MD 12/25/24 Potassium Chloride (Potassium Chloride ER) 10 Meq Tab, 10 MEQ PO BID for 10 Days, #20 TAB Prov:MILIND ARGUETA MD 12/25/24 Meclizine HCl (Meclizine 25) 25 Mg Tab, 25 MG PO Q8HP PRN, #10 TAB Prov:GRACEILA NULL PAC 02/17/24 Ondansetron Odt 4MG Tab (ZOFRAN PO) 4 Mg Tb, 4 MG PO Q6HP PRN, #15 TAB ODT TAB-DISSOLVE IN MOUTH, THEN SWALLOW Prov:GRACIELA NULL PAC 02/17/24 Acetaminophen W/ Codeine (Tylenol W/Cod #3) 1 Tab Tb, 1 TAB PO Q6HP PRN, #15 TAB Prov:GRACIELA NULL PAC 02/17/24 Cephalexin ( Keflex 500) 500 Mg Cap, 1 CAP PO TID for 7 Days, #21 CAP Prov:RAVI MCINTYRE MD 04/28/23 Information Source: Patient Mode of Arrival: Ambulatory Past Medical History PAST MEDICAL HISTORY: Denies Surgical History: Denies all surgeries ORTHOPEDIC DESIGNER History: No Pertinent ORTHOPEDIC DESIGNER History Family History Family History: Reviewed,noncontributory to illness Social History Smoker: Non-Smoker Alcohol: Denies ETOH Use Drugs: Denies Drug Use Lives In: Home Constitutional: denies: chills, diaphoresis, fatigue, fever, malaise, sweats, weakness, others EENTM: denies: blurred vision, double vision, ear bleeding, ear discharge, ear drainage, ear pain, ear ringing, eye pain, eye redness, hearing loss, mouth pain, mouth swelling, nasal discharge, nose bleeding, nose congestion, nose pain, photophobia, tearing, throat pain, throat swelling, voice changes, others Respiratory: denies: cough, hemoptysis, orthopnea, SOB at rest, shortness of breath, SOB with excertion, stridor, wheezing, others Cardiovascular: denies: chest pain, dizzy spells, diaphoresis, Dyspnea on exertion, edema, irregular heart beat, left arm pain, lightheadedness, palpitations, PND, syncope, others Gastrointestinal: denies: abdomen distended, abdominal pain, blood streaked bowels, constipated, diarrhea, dysphagia, difficulty swallowing, hematemesis, melena, nausea, poor appetite, poor fluid intake, rectal bleeding, rectal pain, vomiting, others Genitourinary: denies: abnormal vagina bleeding, burning, dyspareunia, dysuria, flank pain, frequency, hematuria, incontinence, pain, , vagina discharge, urgency, others Neurological: denies: dizziness, fainting, headache, left sided numbness, left sided weakness, numbness, paresthesia, pre-existing deficit, right sided numbness, right sided weakness, seizure, speech problems, tingling, tremors, weakness, others Musculoskeletal: denies: back pain, gout, joint pain, joint swelling, muscle pain, muscle stiffness, neck pain, others Integumetry: reports: lesions; denies: bruises, change in color, change in hair/nails, dryness, laceration, lumps, rash, wounds, others Allergic/Immunocompromised: denies: Difficulty Healing, Frequent Infections, Hives, Itching, others Hematologic/Lymphatic: denies: anemia, blood clots, easy bleeding, easy bruising, swollen glands, others Endocrine: denies: excessive hunger, excessive sweating, excessive thirst, excessive urination, flushing, intolerance to cold, intolerance to heat, unexplained weight gain, unexplained weight loss, others Psychiatric: reports: anxiety, bipolar disorder, depression, hopeless, panic disorder, schizophrenia, sleepless, suicidal, others Physical Exam General Appearance: No Apparent Distress, Normal HEENT: Normal ENT Inspection, Pharynx Normal, TMs Normal Neck: Full Range of Motion, Non-Tender, Normal, Normal Inspection Respiratory: Chest Non-Tender, Lungs Clear, No Accessory Muscle Use, No Respiratory Distress, Normal Breath Sounds Cardiovascular: No Edema, No JVD, No Murmur, No Gallop, Normal Peripheral Pulses, Regular Rate/Rhythm Breast Exam: Deferred Gastrointestinal: No Organomegaly, Non Tender, No Pulsatile Mass, Normal Bowel Sounds, Soft Genitalia: Deferred Pelvic: Deferred Rectal: Deferred Extremities: No calf tenderness, Normal capillary refill, Normal inspection, Normal range of motion, Non-tender, No pedal edema Musculoskeletal : Apperance: Normal Neurologic: Alert, block making machine operator II-XII nml as Tested, No Motor Deficits, Normal Affect, Normal Mood, No Sensory Deficits Cerebellar Function: Normal Reflexes: Normal Skin: Dry, Normal Color, Warm, Other (GOLF BALL SIZE TENDER LUMP RIGHT AXILLARY TENDERNESS ON PALPATION SURROUNDING ERYTHEMA NON FLUCTUANT NO NOTED STREAKING) Lymphatic: No Adenopathy Was a procedure done? Was a procedure done?: Yes Sedation Sedation?: No Informed consent obtained: Yes Incision and Drainage Incision and Drainage: Abscess Anesthetic: Lidocaine Preparation: Betadine Incision and Wound: Pus, Blood Informed consent obtained: Yes Risks/benefits/alt described: Yes Notes PATIENT TOLERATED WELL WITH MINIMAL BLOOD LOSS. 1 SUTURE REQUIRED TO CLOSE UP SURGICAL OPENING BLEEDING CONTROLLED Differential Diagnosis (INTG) Differential Diagnosis: Cellulitis Differential Diagnosis: Abscess, Hidradenitis suppurativa X-Ray, Labs, Meds, VS Vital Signs Date Time Temp Pulse Resp B/P (MAP) Pulse Ox O2 Delivery O2 Flow Rate FiO2 03/25/25 20:56 98.6 95 18 145/111 (122) 98 98.6 Current Medications Medications (Trade) Dose Ordered Sig/Zuleyka Route Start Time Stop Time Status Last Admin Ceftriaxone Sodium (Rocephin) 1,000 mg ONCE ONCE IM 03/25/25 23:30 03/25/25 23:31 DC 03/25/25 23:50 X-Ray, Labs, Meds, VS Comment SEE PROCEDURE NOTE. FOLLOW UP IN 2 DAYS AT URGENT CARE HERE OR PCP FOR ABSCESS RE-EVALUATION. SUTURE REMOVAL IN 5-7 DAYS. TAKE ANTIBIOTICS PRESCRIBED SIDE EFFECTS DISCUSSED. RETURN TO THE ER FOR INCREASING PAIN, HIGH FEVERS, NAUSEA VOMITING OR ANY CONCERNING SYMPTOMS. Time of 1ST Reevaluation: 21:00 Reevaluation 1ST: Unchanged Patient Education/Counseling: Diagnosis, Treatment, Prognosis, Need For Follow Up Family Education/Counseling: No Family Present Departure 1 Departure Time of Disposition: 23:28 Impression: Primary Impression: Hidradenitis suppurativa of right axilla Disposition: HOME / SELF CARE / HOMELESS Condition: Stable Additional Instructions: FOLLOW UP IN 2 DAYS AT URGENT CARE HERE OR PCP FOR ABSCESS RE-EVALUATION. SUTURE REMOVAL IN 5-7 DAYS. TAKE ANTIBIOTICS PRESCRIBED SIDE EFFECTS DISCUSSED. RETURN TO THE ER FOR INCREASING PAIN, HIGH FEVERS, NAUSEA VOMITING OR ANY CONCERNING SYMPTOMS. e-Prescriptions Ibuprofen (Ibuprofen) 800 Mg Tab 800 MG PO Q8HP PRN for 4 Days, #12 TAB Prov: RICHARD WADDELL 03/25/25 Clindamycin Hcl (Clindamycin Hcl) 300 Mg Cap 1 CAP PO TID for 7 Days, #21 CAP Prov: RICHARD WADDELL 03/25/25 Discharged With: Self Critical Care Note Critical Care Time?: No Stability Stability form required: No RICHARD WADDELL Mar 25, 2025 22:54
[2025-03-25] MEDS: LIDOCAINE 1% HCL (LOCAL ANESTH.) INJ 20ML MDV ID ONE (23:25)
[2025-03-25] MEDS ORDERED: CLIN1CAP70 PO (23:30)
[2025-03-25] MEDS ORDERED: IBUP-1456 PO (23:30)
[2025-03-25 23:50] VITALS: BP 133/86; PULSE 88; RESP 19; TEMP 98.2; O2SAT 99
[2025-03-25] MEDS: cefTRIAXone SOD 1,000 MG VL IM ONE (23:50)
== END 2025-03-26 00:06 | disposition home or self-care (01) ==
LOC: ER 20:38
DX: L73.2 Hidradenitis suppurativa (principal); Z88.8 Allergy status to other drugs, medicaments and biological substances
CPT/HCPCS: 10060; 96372; 99283; J0696; J2003

== ENCOUNTER 2025-03-29 12:30 | Emergency (ER) | payer MEDICAID ==
[~2025-03-29] VITALS: Ht 165.1 cm; Wt 79.5 kg
[~2025-03-29 12:30] MED LIST changes: +CLIN1CAP70 PO; +IBUP-1456 PO
--- NOTE | 2025-03-29 13:53 | ED.PDOC ---
HPI Comments 34-year-old female brought in by family complaining of sharp chest pain with inspiration and cough since this morning, associated with difficulty breathing, fever, productive cough and congestion. Patient states she is taking Zithromax, using an inhaler and taking ibuprofen without relief. She denies any nausea, vomiting, sick contacts or extremity edema. Chief Complaint: Chest Pain Time Seen by MD: 13:25 Primary Care Provider: DENIES Reviewed Notes: Nurses Notes, Medications, Allergies Allergies: Coded Allergies: Acetaminophen (Verified Allergy, Unknown, 03/18/25) Home Meds Active Scripts Ibuprofen (Ibuprofen) 800 Mg Tab, 800 MG PO Q8HP PRN for 4 Days, #12 TAB Prov:RICHARD WADDELL 03/25/25 Clindamycin Hcl (Clindamycin Hcl) 300 Mg Cap, 1 CAP PO TID for 7 Days, #21 CAP Prov:RICHARD WADDELL 03/25/25 Ibuprofen Micronized (MOTRIN TABLET) 600 Mg Tb, 600 MG PO TID PRN, #40 TAB *Black box warning-NSAIDS can increase risk of NM & hypertension, GI irritation, ulceration, bleed, perferation. Do not use post cardiac surgery. Use short duration/lowest effective dose. Prov:SHARA SERRANO MD 03/18/25 Ibuprofen (Advil) 200 Mg Cap, 800 MG PO TIDWMEALS, #30 CAP Prov:MARIA BULL MD 01/03/25 Cyclobenzaprine Hcl (CYCLOBENZAPRINE HCL) 7.5 Mg Tab, 7.5 MG PO Q6HP PRN for 7 Days, #28 TAB Prov:MILIND ARGUETA MD 12/25/24 Potassium Chloride (Potassium Chloride ER) 10 Meq Tab, 10 MEQ PO BID for 10 Days, #20 TAB Prov:MILIND ARGUETA MD 12/25/24 Meclizine HCl (Meclizine 25) 25 Mg Tab, 25 MG PO Q8HP PRN, #10 TAB Prov:GRACIELA NULL PAC 02/17/24 Ondansetron Odt 4MG Tab (ZOFRAN PO) 4 Mg Tb, 4 MG PO Q6HP PRN, #15 TAB ODT TAB-DISSOLVE IN MOUTH, THEN SWALLOW Prov:GRACIELA NULL PAC 02/17/24 Acetaminophen W/ Codeine (Tylenol W/Cod #3) 1 Tab Tb, 1 TAB PO Q6HP PRN, #15 TAB Prov:GRACIELA NULL PAC 02/17/24 Cephalexin ( Keflex 500) 500 Mg Cap, 1 CAP PO TID for 7 Days, #21 CAP Prov:RAVI MCINTYRE MD 04/28/23 Information Source: Patient Mode of Arrival: Ambulatory Severity: Moderate Timing: Hours Duration: Since onset, Hours Prehospital treatment: None Location: Substernal Radiation: No Radiation Quality: Tightness Onset: At Rest Cardiac Risk Factors: None PE Risk Factors: None History of: None Associated Signs and Symptoms: None Past Medical History PAST MEDICAL HISTORY: Denies Surgical History: Denies all surgeries UX ENGINEER History: No Pertinent UX ENGINEER History Family History Family History: Reviewed,noncontributory to illness Social History Smoker: Non-Smoker Alcohol: Denies ETOH Use Drugs: Denies Drug Use Lives In: Home Constitutional: reports: fever; denies: chills, diaphoresis, fatigue, malaise, sweats, weakness, others EENTM: denies: blurred vision, double vision, ear bleeding, ear discharge, ear drainage, ear pain, ear ringing, eye pain, eye redness, hearing loss, mouth pain, mouth swelling, nasal discharge, nose bleeding, nose congestion, nose pain, photophobia, tearing, throat pain, throat swelling, voice changes, others Respiratory: reports: cough; denies: hemoptysis, orthopnea, SOB at rest, shortness of breath, SOB with excertion, stridor, wheezing, others Cardiovascular: reports: chest pain; denies: dizzy spells, diaphoresis, Dyspnea on exertion, edema, irregular heart beat, left arm pain, lightheadedness, palpitations, PND, syncope, others Gastrointestinal: denies: abdomen distended, abdominal pain, blood streaked bowels, constipated, diarrhea, dysphagia, difficulty swallowing, hematemesis, melena, nausea, poor appetite, poor fluid intake, rectal bleeding, rectal pain, vomiting, others Genitourinary: denies: abnormal vagina bleeding, burning, dyspareunia, dysuria, flank pain, frequency, hematuria, incontinence, pain, , vagina discharge, urgency, others Neurological: denies: dizziness, fainting, headache, left sided numbness, left sided weakness, numbness, paresthesia, pre-existing deficit, right sided nu mbness, right sided weakness, seizure, speech problems, tingling, tremors, weakness, others Musculoskeletal: denies: back pain, gout, joint pain, joint swelling, muscle pain, muscle stiffness, neck pain, others Integumetry: denies: bruises, change in color, change in hair/nails, dryness, laceration, lesions, lumps, rash, wounds, others Allergic/Immunocompromised: denies: Difficulty Healing, Frequent Infections, Hives, Itching, others Hematologic/Lymphatic: denies: anemia, blood clots, easy bleeding, easy bruising, swollen glands, others Endocrine: denies: excessive hunger, excessive sweating, excessive thirst, excessive urination, flushing, intolerance to cold, intolerance to heat, unexplained weight gain, unexplained weight loss, others Psychiatric: denies: anxiety, bipolar disorder, depression, hopeless, panic disorder, schizophrenia, sleepless, suicidal, others All Other Systems: Reviewed and Negative Physical Exam General Appearance: No Apparent Distress, Obese HEENT: Other (Pupils and face symmetric. Moist mucous membranes.) Neck: Full Range of Motion, Normal Inspection Respiratory: Decreased Breath Sounds, No Accessory Muscle Use, No Respiratory Distress, Normal Breath Sounds Cardiovascular: No Edema, No JVD, Regular Rate/Rhythm Breast Exam: Deferred Gastrointestinal: Non Tender, Soft Genitalia: Deferred Pelvic: Deferred Rectal: Deferred Extremities: Normal inspection, Normal range of motion, Non-tender, No pedal edema Neurologic: Alert (Oriented x4), Normal Affect, Normal Mood, Other (Ambulatory without difficulty) Cerebellar Function: NOT DONE Reflexes: NOT DONE Skin: Dry, Normal Color, Warm Lymphatic: NOT DONE Was a procedure done? Was a procedure done?: No CP Differential Dx Differential Diagnosis: Angina, Anxiety / Panic Attack, Pulmonary Embolus Differential Diagnosis: CHF Differential Diagnosis: Chest Wall Pain, Gastritis, Pericarditis, Pneumonia, Pneumothorax, Other (Bronchitis) X-Ray, Labs, Meds, VS Vital Signs Date Time Temp Pulse Resp B/P (MAP) Pulse Ox O2 Delivery O2 Flow Rate FiO2 03/29/25 16:29 98.1 91 15 133/96 (108) 99 98.1 03/29/25 14:15 74 16 98 Room Air* 0 21 03/29/25 13:59 20 96 Room Air* 0 21 03/29/25 13:32 98.4 94 18 116/74 (88) 97 98.4 03/29/25 12:35 88 Lab Test 03/29/25 14:43 03/29/25 13:52 03/29/25 12:35 Range/Units Urine Color Light-yellow Yellow Urine Clarity Clear Clear Urine pH 6.0 5.0-9.0 Urine Specific [place] 1.011 1.001-1.035 Urine Protein Negative Negative Urine Ketones Negative Negative Urine Blood Negative Negative /uL Urine Nitrite Negative Negative Urine Bilirubin Negative Negative Urine Urobilinogen Normal Negative mg/dL Urine Leukocyte Esterase Negative Negative /uL Urine RBC 1 0 - 4 /hpf Urine Microscopic WBC 2 0-5 /HPF Urine Squamous Epithelial Cells Few <5 /hpf Urine Bacteria Few H None Seen /hpf Urine Glucose Normal Normal mg/dL Sodium Level 137 136-145 mmol/L Potassium Level 4.5 3.5-5.1 mmol/L Chloride Level 108 H 98-107 mmol/L Carbon Dioxide Level 20 20-31 mmol/L Anion Gap 9 5-15 Blood Urea Nitrogen 9 9-23 mg/dL Creatinine 0.74 0.550-1.02 mg/dL Glomerular Filtration Rate Calc 109 >90 mL/min BUN/Creatinine Ratio 12.2 10.0-20.0 Serum Glucose 90 74-106 mg/dL Calcium Level 9.6 8.7-10.4 mg/dL Troponin I High Sensitivity < 3 L < 3 L </=34 ng/L Beta HCG, Quantitative 0.6 L 1.5-4.2 mIU/mL White Blood Count 12.3 H 4.4-10.8 10^3/uL Red Blood Count 4.35 4.0-5.20 10^6/uL Hemoglobin 13.1 12.2-16.2 g/dL Hematocrit 39.4 36.0-46.0 % Mean Corpuscular Volume 90.6 80.0-100.0 fL Mean Corpuscular Hemoglobin 30.1 28.0-32.0 pg Mean Corpuscular Hemoglobin Concent 33.2 32.0-36.0 g/dL Red Cell Distribution Width 13.9 11.8-14.3 % Platelet Count 402 140-450 10^3/uL Mean Platelet Volume 8.3 6.9-10.8 fL Neutrophils (%) (Auto) 60.6 37.0-80.0 % Lymphocytes (%) (Auto) 30.4 10.0-50.0 % Monocytes (%) (Auto) 6.4 0.0-12.0 % Eosinophils (%) (Auto) 1.9 0.0-7.0 % Basophils (%) (Auto) 0.7 0.0-2.0 % Neutrophils # (Auto) 7.5 1.6-8.6 10 ^3/uL Lymphocytes # (Auto) 3.8 0.4-5.4 10 ^3/uL Monocytes # (Auto) 0.8 0-1.3 10 ^3/uL Eosinophils # (Auto) 0.2 0-0.8 10 ^3/uL Basophils # (Auto) 0.1 0-0.2 10 ^3/uL Nucleated Red Blood Cells 0.1 % B-Type Natriuretic Peptide 46.49 0-100 pg/mL Current Medications Medications (Trade) Dose Ordered Sig/Zuleyka Route Start Time Stop Time Status Last Admin Albuterol (Ventolin Medneb) 5 mg ONCE ONCE NEB 03/29/25 13:45 03/29/25 13:46 DC 03/29/25 13:59 Ipratropium [place] (Atrovent Medneb) 0.5 mg ONCE ONCE NEB 03/29/25 13:45 03/29/25 13:46 DC 03/29/25 13:59 Dexamethasone Sodium Phosphate (Decadron Injection) 10 mg ONCE ONCE IM 03/29/25 13:45 03/29/25 13:46 DC 03/29/25 14:18 Ketorolac Tromethamine (Toradol Injection) 60 mg ONCE ONCE IM 03/29/25 13:45 03/29/25 13:46 DC 03/29/25 14:18 PROCEDURE(s): CXRP - CHEST PORTABLE REASON: cp ORDER NUMBER(s): [id number], ACCESSION NUMBER(s): [id number] XY CHEST PORTABLE, HISTORY: cp COMPARISON: XY CHEST PORTABLE on DOS: 03/18/25, XY CHEST XRAY 1 VIEW on DOS: , XY CHEST PORTABLE on DOS: 12/25/24 XY CHEST PORTABLE on DOS: 03/18/25, XY CHEST XRAY 1 VIEW on DOS: 12/25/24, XY CHEST PORTABLE on DOS: 12/25/24 TECHNICAL DATA: 1 view of the chest was obtained. FINDINGS: Lines and tubes: None Cardiomediastinal silhouette: normal Pulmonary vasculature: normal Lung expansion: normal Lung airspace: normal Lung interstitium: normal Pleura: normal Pneumothorax: no Bones: Unremarkable Other: no IMPRESSION: No acute intrathoracic abnormality. X-Ray, Labs, Meds, VS Comment 34-year-old female with no significant past medical history complaining of pleuritic chest pain, difficulty breathing, fever and cough Vitals unremarkable Exam remarkable for diminished breath sounds Rhythm strip independently interpreted by me: Sinus rhythm, rate 88, no ectopy. Chest x-ray unremarkable CBC remarkable for WBC 12.3, metabolic panel unremarkable, troponin negative x2, BNP unremarkable, serum hCG negative, UA unremarkable Patient treated with the following in the ED: Albuterol 5 mg/Atrovent 0.5 mg nebulized, dexamethasone 10 mg IM, Toradol 60 mg IM On re-evaluation, patient states symptoms have improved. Vitals are stable. Patient appears stable for discharge with close outpatient follow-up with her primary physician. I will prescribe an oral steroid. Time of 1ST Reevaluation: 13:55 Reevaluation 1ST: Unchanged Patient Education/Counseling: Diagnosis, Treatment, Prognosis Family Education/Counseling: No Family Present Departure 1 Departure Time of Disposition: 16:39 Impression: Primary Impression: Pleuritic chest pain Additional Impression: Bronchitis Disposition: 01 HOME / SELF CARE / HOMELESS Condition: Stable Additional Instructions: Your blood tests and chest x-ray were unremarkable. I have prescribed medication for your symptoms. Continue current medications as directed. Follow-up with primary doctor in 1-2 days. e-Prescriptions Prednisone (Prednisone) 20 Mg Tab 40 MG PO DAILY for 4 Days, #8 MG Prov: KALIA DORSEY MD 03/29/25 Discharged With: Relative Critical Care Note Critical Care Time?: No Stability Stability form required: No Heart Score Heart Score: Heart Score Response (Comments) Value History Slightly Suspicious 0 EKG Normal 0 Age <45 0 Risk Factors No known risk factors 0 Troponin Normal limit 0 Total 0 I personally scribed for KALIA DORSEY MD ([email or web address]) on 03/29/25 at 13:52. Electronically submitted by Terrance Chong ([email or web address]). KALIA DORSEY MD Mar 29, 2025 13:52
[2025-03-29] MEDS: IPRATROPIUM BROM 0.5 MG/2.5ML INH SOL NEB ONE (13:59)
[2025-03-29] MEDS: ALBUTEROL SULF 2.5 MG/0.5ML(0.5%) NEB SOLN NEB ONE (13:59)
[2025-03-29 14:15] VITALS: PULSE 74; RESP 16; O2SAT 98
[2025-03-29] MEDS: KETOROLAC TROMETH 60MG/2ML VIAL IM ONE (14:18)
[2025-03-29] MEDS: DexAMETHasone SOD PHOS 10MG/1ML VIAL INJ IM ONE (14:18)
[2025-03-29 14:26] LABS: Basophils # (auto) 0.1 10 ^3/uL (0-0.2); Basophils % (auto) 0.7 % (0.0-2.0); Eosinophils # (auto) 0.2 10 ^3/uL (0-0.8); Eosinophils % (auto) 1.9 % (0.0-7.0); Hematocrit 39.4 % (36.0-46.0); Hemoglobin 13.1 g/dL (12.2-16.2); Lymphocytes # (auto) 3.8 10 ^3/uL (0.4-5.4); Lymphocytes % (auto) 30.4 % (10.0-50.0); Mean Corpuscular Hemoglobin 30.1 pg (28.0-32.0); Mean Corpuscular Hgb Conc. 33.2 g/dL (32.0-36.0); Mean Corpuscular Volume 90.6 fL (80.0-100.0); Monocytes # (auto) 0.8 10 ^3/uL (0-1.3); Monocytes % (auto) 6.4 % (0.0-12.0); Neutrophils # (auto) 7.5 10 ^3/uL (1.6-8.6); Neutrophils % (auto) 60.6 % (37.0-80.0); Nucleated Red Blood Cells % 0.1 %; Platelet Count (auto) 402 10^3/uL (140-450); Red Blood Cells 4.35 10^6/uL (4.0-5.20); Red Cell Distribution Width 13.9 % (11.8-14.3); White Blood Cell 12.3 10^3/uL (4.4-10.8)
[2025-03-29 14:31] LABS: Anion Gap 9 (5-15); Carbon Dioxide 20 mmol/L (20-31); Potassium 4.5 mmol/L (3.5-5.1); Sodium 137 mmol/L (136-145)
[2025-03-29 14:32] LABS: Calcium 9.6 mg/dL (8.7-10.4)
[2025-03-29 14:35] LABS: Chloride 108 mmol/L (98-107)
[2025-03-29 14:37] LABS: BUN/Creatinine Ratio 12.2 (10.0-20.0); Blood Urea Nitrogen 9 mg/dL (9-23); Glucose 90 mg/dL (74-106)
[2025-03-29 14:56] LABS: Urine Bacteria FEW /hpf (None Seen); Urine Blood Negative /uL (Negative); Urine Clarity Clear (Clear); Urine Color Light-Yellow (Yellow); Urine Protein, UAD Negative (Negative); Urine Specific Gravity 1.011 (1.001-1.035); Urine Squamous Epithelial Cell FEW /hpf (<5); Urine Urobilinogen Normal (Negative); Urine WBC 2 /HPF (0-5)
--- NOTE | 2025-03-29 15:14 | DVH ---
XY CHEST PORTABLE, HISTORY: cp COMPARISON: XY CHEST PORTABLE on DOS: 03/18/25, XY CHEST XRAY 1 VIEW on DOS: 12/25/24, XY CHEST PORTABL E on DOS: 12/25/24 XY CHEST PORTABLE on DOS: 03/18/25, XY CHEST XRAY 1 VIEW on DOS: 12/25/24, XY CHEST PORTABLE on DOS: TECHNICAL DATA: 1 view of the chest was obtained. FINDINGS: Lines and tubes: None Cardiomediastinal silhouette: normal Pulmonary vasculature: normal Lung expansion: normal Lung airspace: normal Lung interstitium: normal Pleura: normal Pneumothorax: no Bones: Unremarkable Other: no IMPRESSION: No acute intrathoracic abnormality.
[2025-03-29 16:29] VITALS: BP 133/96; PULSE 91; RESP 15; TEMP 98.1; O2SAT 99
[2025-03-29] MEDS ORDERED: PRED20TA2 PO (16:41)
--- NOTE | 2025-03-30 12:36 | ECG ---
[facility] Test Date: 2025-03-29 Test Time: 12:35:35 Pat Name: BRIGETTE WIGGINS Department: ER Room: Gender: F Psych Np: gp : 1990 Requested By: KALIA DEVLIN Order Number: [id number] Reading MD: Jesus Kahn Measurements Intervals [place] Rate: 88 P: 49 RI: 140 QRS: -17 QRSD: 82 T: 19 QT: 354 QTc: 429 Interpretive Statements Sinus rhythm Probable left atrial enlargement Borderline left axis deviation Consider anterior infarct Baseline wander in lead(s) II,III,aVR,aVF,V2,V6 Electronically Signed On 03-30-2025 13:09:21 PDT by Jesus Kahn Please click the below link to view image of tracing.
== END 2025-03-29 16:55 | disposition home or self-care (01) ==
LOC: ER 12:30
DX: R07.89 Other chest pain (principal); J40 Bronchitis, not specified as acute or chronic; Z79.899 Other long term (current) drug therapy; Z88.1 Allergy status to other antibiotic agents
CPT/HCPCS: 36415; 71045; 80048; 81001; 83880; 84484; 84702; 85025; 93005; 94640; 96372; 99285; J1100; J1885